=== PATIENT | female | born 1990 | race African-American/Black ===

== ENCOUNTER 2016-06-20 21:34 | Emergency (ER) | payer MEDICAID ==
[~2016-06-20] VITALS: Ht 170.2 cm; Wt 63.5 kg
[2016-06-20 21:50] VITALS: BP 143/79
--- NOTE | 2016-06-20 22:48 | NUR ---
PATIENT LEFT WITHOUT BEING SEEN BY DR. GOSS. NO FURTHER CARE PROVIDED FOR PATIENT. PATIENT'S NAME WAS CALLED THREE TIMES BY HEAD NECK SURGEON; NO RESPONSE.
== END 2016-06-20 22:48 | disposition left against medical advice (07) ==
LOC: MED 21:34
DX: H91.93 Unspecified hearing loss, bilateral (principal); Z53.21 Procedure and treatment not carried out due to patient leaving prior to being seen by health care provider